=== PATIENT | female | born 1940 | race Caucasian/White ===

== ENCOUNTER 2020-08-25 12:17 | Emergency (ER) | payer OTHER, MEDICARE | END 2020-08-25 12:27 | disposition home or self-care (01) | LOC: JVIRT 12:17 | DX: Z03.818 Encounter for observation for suspected exposure to other biological agents ruled out (principal) | CPT/HCPCS: C9803; G2012-GT; U0003 ==

== ENCOUNTER 2020-10-28 13:04 | Emergency (ER) | payer OTHER, MEDICARE | END 2020-10-28 13:15 | disposition home or self-care (01) | LOC: JVIRT 13:04 | DX: U07.1 COVID-19 (principal) | CPT/HCPCS: C9803; G2012-GT; U0003 ==

== ENCOUNTER 2020-11-02 09:38 | Emergency (ER) | payer OTHER, MEDICARE ==
[2020-11-02 09:46] VITALS: BP 134/78; PULSE 87; TEMP 97.9; BMI 28.3
[2020-11-02] MEDS ORDERED: CASIRIVIMAB (REGN10933) 1,200 MG, IMDEVIMAB (REGN10987) 1,200 MG in SODIUM CHLORIDE 230 ML IVPB ONE (10:00)
[2020-11-02 10:44] LABS: BASO % 0.4 % (0-2.0); HEMATOCRIT 42.1 % (32.4-45.2); HEMOGLOBIN 14.4 GM/dL (10.7-15.3); LYMPH % 34.4 % (8-40); MCH 32.8 pg (25.7-33.7); MCHC 34.3 g/dl (32.0-36.0); MEAN CELL VOLUME 95.6 fl (80-96); MEAN PLT VOLUME 10.2 fl (7.5-11.1); MONO % 15.4 % (3.8-10.2); NEUT % 48.8 % (42.8-82.8); PLATELET COUNT 128 K/MM3 (134-434); RDW 12.6 % (11.6-15.6); WHITE BLOOD COUNT 3.5 K/mm3 (4.0-10.0)
[2020-11-02 11:02] LABS: POTASSIUM 4.3 mmol/L (3.5-5.1)
[2020-11-02 11:04] LABS: CALCIUM 9.1 mg/dL (8.5-10.1)
[2020-11-02 11:05] LABS: ALBUMIN 4.1 g/dl (3.4-5.0); BLOOD UREA NITROGEN 11.4 mg/dL (7-18)
[2020-11-02 11:07] LABS: CREATININE 0.6 mg/dL (0.55-1.3)
[2020-11-02 11:09] LABS: BILIRUBIN,TOTAL 0.4 mg/dL (0.2-1); TOT PROT 7.3 g/dl (6.4-8.2)
== END 2020-11-02 14:07 | disposition home or self-care (01) ==
LOC: JCOVINFU 09:38 → JER 09:38 → JCOVINFU 14:07
DX: U07.1 COVID-19 (principal)
CPT/HCPCS: 36415; 71046-TC-FY; 80053; 85025; 96365; 99285-25; M0243; Q0243